=== PATIENT | female | born 1940 | race Caucasian/White ===

== ENCOUNTER 2017-08-31 07:43 | Emergency (ER) | payer MEDICARE ==
[2017-08-31] MEDS ORDERED: methylPREDNISolone Sod Succ/PF 125 MG/2 ML VIAL ONE (07:54)
--- OUTSIDE RECORDS SUMMARY | 2017-08-31 07:55 | XMS | Clinical Summary ---
:1940 Author Organization [facility] Address [address] [place] [address] Phone Care Team Providers Name Role Phone , Primary Care Provider Unavailable Allergies Not on File Current Medications Not on file Active Problems Not on file Social History Tobacco Use Types Packs/Day Years Used Date Never Assessed Sex Assigned at Date Recorded Not on file Last Filed Vital Signs Not on file Plan of Treatment Not on file Results Not on filefrom Last 3 Months
[2017-08-31 08:18] LABS: Hematocrit 34.4 % (36.0-47.0); Red Blood Cell (RBC) Count 3.72 mill/uL (4.20-5.40); White Blood Cell (WBC) Count 3.9 thou/uL (4.8-10.8)
[2017-08-31 08:19] LABS: #Eosinphils 0.1 thou/uL (0.0-0.7); #Lymphocytes 0.5 thou/uL (1.20-3.40); #Monocytes 0.3 thou/uL (0.11-0.59); %Eosinophils 2.3 % (0.0-10.0); %Lymphocytes 12.6 % (21.0-51.0)
--- NOTE | 2017-08-31 08:36 | RAD ---
RADIOGRAPH CHEST 1 VIEW: Date: 08/31/17 Time: 0733 HOURS HISTORY: 77-year-old female with dyspnea and wheezing. COMPARISON: None available. FINDINGS: The interstitial markings are diffusely prominent. There is cardiomegaly. There are patchy air space densities in the retrocardiac portion of the left lower lobe with partial silhouetting of the left hemidiaphragm. Single lead left subclavian pacemaker. No pneumothorax. IMPRESSION: 1. Left lower lobe air space densities. 2. Cardiomegaly and questionable mild congestive heart failure. 3. Pacemaker. SHAHZAD [] POS: FELIX
[2017-08-31 08:37] LABS: Chloride 102 mmol/L (98-107)
[2017-08-31 08:38] LABS: Calcium 9.6 mg/dL (7.8-10.44)
[2017-08-31 08:39] LABS: Protein, Total 7.4 g/dL (6.0-8.3)
[2017-08-31 08:40] LABS: Bilirubin, Total 0.8 mg/dL (0.2-1.2); Carbon Dioxide 26 mmol/L (23-31); Troponin I 0.014 ng/mL (< 0.028)
[2017-08-31 08:41] LABS: Alkaline Phosphatase 155 U/L (40-150)
[2017-08-31 08:42] LABS: Calc. Creatinine Clearance 0 mL/min (70-130); Estimated GFR-MDRD 34
[2017-08-31 08:43] LABS: BUN (Urea Nitrogen) 56 mg/dL (9.8-20.1)
[2017-08-31 08:44] LABS: ALT (SGPT) 10 U/L (8-55); AST (SGOT) 43 U/L (5-34)
[2017-08-31 08:50] LABS: PTT 84.5 SEC (22.9-36.1); Prothrombin Time 19.1 SEC (12.0-14.7)
[2017-08-31 08:55] LABS: Anion Gap 14 mmol/L (10-20)
[2017-08-31 09:45] LABS: Anion Gap 9 mmol/L (-14-95); T. Carbon Dioxide 30.8 mmol/L (1.0-85.0); pH (Venous) 7.414 (7.35-7.45)
[2017-08-31] MEDS ORDERED: Piperacillin/Tazobactam 3.375 GM in Sodium Chloride 0.9% 100 ML IVPB SCH (11:30)
--- NOTE | 2017-09-06 12:36 | EKG ---
Test Reason : Blood Pressure : / mmHG Vent. Rate : 068 BPM Atrial Rate : 394 BPM P-R Int : 000 ms QRS Dur : 100 ms QT Int : 448 ms P-R-T Axes : 000 001 222 degrees QTc Int : 476 ms Intermittently ventricular pacing Abnormal ECG Confirmed by PARRIS SAUCEDO MD ([id number]), brands editor LYNN FERRARA ([id number]) on 09/06/2017 12:35:28 PM Referred By: Confirmed By:PARRIS SAUCEDO MD
== END 2017-08-31 14:40 | disposition short-term general hospital (02) ==
LOC: ERS 07:43
DX: I13.0 Hypertensive heart and chronic kidney disease with heart failure and stage 1 through stage 4 chronic kidney disease, or unspecified chronic kidney disease (principal); I50.9 Heart failure, unspecified; N18.9 Chronic kidney disease, unspecified; D72.819 Decreased white blood cell count, unspecified; E11.22 Type 2 diabetes mellitus with diabetic chronic kidney disease; G20 Parkinson's disease; I48.2 Chronic atrial fibrillation
CPT/HCPCS: 36415; 71010; 80053; 82330; 82553; 82803; 83880; 84484; 85025; 85610; 85730; 87040; 93005; 96365; 96367; 96375; J2543; J2930; J3370; J7050; J7620

== ENCOUNTER 2017-10-13 09:09 | Emergency (ER) | payer MEDICARE ==
[2017-10-13 10:04] LABS: #Lymphocytes 0.4 thou/uL (1.20-3.40); #Monocytes 0.3 thou/uL (0.11-0.59); #Neutrophils 3.7 thou/uL (1.40-6.50); %Lymphocytes 9.5 % (21.0-51.0); Hematocrit 30.5 % (36.0-47.0); Mean Platelet Volume 9.4 fL (7.4-10.4); Red Blood Cell (RBC) Count 3.15 mill/uL (4.20-5.40); White Blood Cell (WBC) Count 4.5 thou/uL (4.8-10.8)
[2017-10-13 10:09] LABS: PTT 70.7 SEC (22.9-36.1)
[2017-10-13 10:27] LABS: ALT (SGPT) 10 U/L (8-55); AST (SGOT) 20 U/L (5-34); Alkaline Phosphatase 167 U/L (40-150); Anion Gap 13 mmol/L (10-20); BUN (Urea Nitrogen) 87 mg/dL (9.8-20.1); Bilirubin, Total 0.9 mg/dL (0.2-1.2); CK (CPK) 27 U/L (29-168); Calc. Creatinine Clearance 0 mL/min (70-130); Calcium 9.4 mg/dL (7.8-10.44); Carbon Dioxide 31 mmol/L (23-31); Chloride 99 mmol/L (98-107); Estimated GFR-MDRD 25; Globulin 3.5 g/dL (2.4-3.5); Protein, Total 7.1 g/dL (6.0-8.3)
[2017-10-13 10:28] LABS: Troponin I Less than 0.010 ng/mL (< 0.028)
--- NOTE | 2017-10-13 10:31 | RAD ---
PORTABLE CHEST 1 VIEW: DATE: 10/13/17. TIME: 9:55 a.m. HISTORY: Dyspnea. FINDINGS/IMPRESSION: Comparison is made with the exam of 08/31/17. The heart is enlarged. Left-sided pacing device remains in place. The aorta is tortuous. There is bilateral pulmonary vascular congestion with scattered patchy infiltrates. No pneumothoraces are s een. Small bilateral pleural effusions are present. POS: MIGUELINA
[2017-10-13 12:24] LABS: Lactic Acid - Sepsis 1.2 mmol/L (0.5-2.2)
== END 2017-10-13 14:01 | disposition short-term general hospital (02) ==
LOC: ERS 09:09
DX: D69.6 Thrombocytopenia, unspecified (principal); J18.9 Pneumonia, unspecified organism; I48.91 Unspecified atrial fibrillation; E11.22 Type 2 diabetes mellitus with diabetic chronic kidney disease; I12.9 Hypertensive chronic kidney disease with stage 1 through stage 4 chronic kidney disease, or unspecified chronic kidney disease; N18.9 Chronic kidney disease, unspecified
CPT/HCPCS: 36415; 71010; 82550; 82553; 83605; 83880; 84484; 85610; 85730; 86850; 86900; 86901; 87040; 93005; 94640; 94760; 96365; 96366; 96375; J1956; J3370; J7620